=== PATIENT | female | born 1995 ===

== ENCOUNTER 2017-06-23 18:43 | Emergency (ER) | payer OTHER ==
[~2017-06-23] VITALS: Ht 160 cm; Wt 71.2 kg
--- NOTE | 2017-06-23 18:54 | ER.PDOC ---
SERAFIN CORDOBA MD 06/23/17 1854: General Chief Complaint: Requesting Medical Care Stated Complaint: SI Time seen by MD: 19:00 Source: patient History of Present Illness Intent: Suicide Severity: moderate Related to: Sigificant Other Associated Symptoms: Depressed Allergies: Coded Allergies: No Known Allergies (Unverified , 06/23/17) Review of Systems All Other Systems: Reviewed and Negative Physical Exam General Appearance: No acute distress, Alert EENT: No nystagmus, PERRLA, EOM's intact, NML ENT inspection, Pharynx nml, NML gag reflex Neck: Non-Tender, Full Range of Motion, Supple, Normal Inspection Respiratory: chest non-tender, lungs clear, normal breath sounds, no respiratory distress, no accessory muscle use Cardiovascular: Normal Peripheral Pulses, Regular Rate, Rhythm, No Edema, No Gallop, No JVD, No Murmur Gastrointestinal: Normal Bowel Sounds, No Organomegaly, No Pulsatile Mass, Non Tender, Soft Extremities: Non-Tender, Normal Range of Motion, No Evidence of Trauma, No Edema Neurological/Psychiatric: Alert, Normal Mood/Affect, Calm, certified court interpreter II-XII NML as Tested, Oriented x 3 Appearance/Memory/Insight: Appropriate Appearance, Appropriate Insight, Neat, No Memory Impairment Behavior/Eye Contact/Speech: Avoids Eye Contact Thoughts/Hallucinations: Normal Thought Pattern, No Apparent Hallucination Skin: Normal Color, Warm/Dry Progress Progress DR SINGH Departure Disposition: 65 XFER TO PSYCH HOSP/UNIT Impression: Primary Impression: Suicidal ideation Additional Impression: Depressed Qualified Codes: F32.9 - Major depressive disorder, single episode, unspecified Condition: Stable Referrals: PCP,UNKNOWN (PCP) PRIMARY CARE PROVIDER MAK SINGH MD 06/23/172054: General Chief Complaint: Requesting Medical Care Stated Complaint: SI History of Present Illness Allergies: Coded Allergies: No Known Allergies (Unverified , 06/23/17) Review of Systems Constitutional: no symptoms reported Respiratory: no symptoms reported Cardiovascular: no symptoms reported Gastrointestinal: no symptoms reported Musculoskeletal: no symptoms reported Psychiatric/Neurological: see HPI Results/Orders Results/Orders Laboratory Tests Test 06/23/17 19:00 06/23/17 19:30 White Blood Count 9.4 10^3/uL (4.5-13.0) Red Blood Count 4.96 10^6/uL (4.00-5.20) Hemoglobin 14.7 g/dL (12.4-14.8) Hematocrit 46.5 % (36.0-46.0) Mean Corpuscular Volume 93.8 fL (78-100) Mean Corpuscular Hemoglobin 29.6 pg (26-34) Mean Corpuscular Hemoglobin Concent 31.6 g/dL (33-37) Red Cell Distribution Width 13.1 % (11.5-14.5) Platelet Count 295 10^3/uL (150-400) Mean Platelet Volume 10.2 fL (7.8-11.0) Neutrophils (%) (Auto) 69.5 % (41.0-85.0) Lymphocytes (%) (Auto) 23.1 % (24.0-44.0) Monocytes (%) (Auto) 6.2 % (5.0-12.0) Neutrophils # (Auto) 6.5 10^3/uL (1.8-8.0) Lymphocytes # (Auto) 2.2 10^3/uL (1.2-5.2) Monocytes # (Auto) 0.6 10^3/uL (0.0-0.4) Absolute Immature Granulocyte (auto 0.02 10^3 u/L (0-2) Eosinophils % 0.5 % (0.0-5.0) Basophils % 0.5 % (0.0-0.2) Basophils # 0.1 10^3/uL (0.0-0.1) Eosinophil Count 0.1 10^3/uL (0.0-0.2) Sodium Level 141 mmol/L (132-145) Potassium Level 3.5 mmol/L (3.6-5.2) Chloride Level 106.0 mmol/L (96-109) Carbon Dioxide Level 22.9 mmol/L (20.0-32) Anion Gap 15.6 Blood Urea Nitrogen 7 mg/dL (7-18) Creatinine 0.69 mg/dL (0.59-1.40) Estimated GFR () 131.2 (>/=60) BUN/Creatinine Ratio 10.0 Glucose Level 107 mg/dL (70-110) Calcium Level 8.7 mg/dL (8.4-10.5) Total Bilirubin 0.7 mg/dL (0.2-1.0) Aspartate Amino Transf (AST/SGOT) 12 U/L (0-35) Alanine Aminotransferase (ALT/SGPT) 7 U/L (12-78) Alkaline Phosphatase 54 U/L (50-136) Total Creatine Kinase 31 U/L (26-192) Creatine Kinase MB 0.2 ng/mL (0.5-3.6) Troponin I < 0.02 ng/mL (0.00-0.05) Total Protein 7.7 g/dL (6.4-8.2) Albumin 4.0 g/dL (3.4-5.0) Globulin 3.7 Serum HCG, Qualitative NEGATIVE (NEGATIVE) Salicylates Level < 2.8 mg/dL (2.8-20.0) Urine Opiates (GC/MS) NEGATIVE (NEGATIVE) Acetaminophen Level < 2 ug/mL (10-30) Urine Amphetamine Qualitative NEGATIVE (NEGATIVE) Urine Barbiturates, Qualitative NEGATIVE (NEGATIVE) Urine Phencyclidine (PCP) (TLC) NEGATIVE (NEGATIVE) Urine Benzodiazepines, Qualitative NEGATIVE (NEGATIVE) Ur Tetrahydrocannabinol (THC) Scrn POSITIVE (NEGATIVE) Serum Alcohol 6 mg/dL (3-50) Percent Immature Gran (Cell Imm) 0.20 % (0.00-0.50) Urine Collection Type CCMS Urine Color YELLOW (YELLOW) Urine Appearance MUCOUS (CLEAR) Urine Bilirubin NEGATIVE MG/DL (NEGATIVE) Urine Ketones NEGATIVE (NEGATIVE) Urine Specific [place] 1.015 (1.005-1.035) Urine pH 7 (5.0-6.0) Urine Protein 100 mg/dL (NEGATIVE) Urine Urobilinogen NORMAL (NEGATIVE) Urine Nitrate NEGATIVE (NEGATIVE) Urine Leukocyte Esterase 500/uL 2+ (NEGATIVE) Urine Blood 150 3+ (NEGATIVE) Urine RBC 10-25 RBC/HPF (NONE SEEN) Urine WBC TNTC WBC/HPF (0-2) Urine Squamous Epithelial Cells RARE #/HPF (FEW) Urine Bacteria MANY (NONE SEEN) Urine Other 2+ MUCOUS #/HPF Urine Glucose NORMAL (NEGATIVE) Departure Time of Disposition: 01:52 Disposition: 65 XFER TO PSYCH HOSP/UNIT Impression: Primary Impression: Suicidal ideation Additional Impression: Depressed Qualified Codes: F32.9 - Major depressive disorder, single episode, unspecified Condition: Stable Referrals: PCP,UNKNOWN (PCP) PRIMARY CARE PROVIDER Comments Patient medically cleared to go to the [facility]. Accepted there. Duration or Time Spent with Pa: 3 hours SERAFIN CORDOBA MD Jun 23, 2017 18:54 MAK SINGH MD Jun 23, 2017 20:55
--- NOTE | 2017-06-23 18:55 | NUR ---
ARRIVAL PT ARRIVED AMBULATORY TO ER 8 WITH C/O OF SUICIDAL IDEATION. PT STATES WANTS TO VOLUNTARILY BE COMMITTED FOR SUICIDAL THOUGHTS. STATES A PLAN OF "TAKING A WHOLE BOTTLE OF BENADRYL TO KILL MYSELF." EDP IN ROOM.
--- NOTE | 2017-06-23 18:56 | NUR ---
SEPSIS PT DOES NOT MEET SEPSIS CRITERIA AT THIS TIME.
[2017-06-23 19:00] VITALS: BP 128/70
[2017-06-23 19:05] LABS: BASOPHIL # 0.1 10^3/uL (0.0-0.1); BASOPHIL % 0.5 % (0.0-0.2); EOSINOPHIL # 0.1 10^3/uL (0.0-0.2); EOSINOPHIL % 0.5 % (0.0-5.0); HEMOGLOBIN 14.7 g/dL (12.4-14.8); LYMPHOCYTES # 2.2 10^3/uL (1.2-5.2); LYMPHOCYTES % 23.1 % (24.0-44.0); MEAN CELL HGB 29.6 pg (26-34); MEAN CELL HGB CONCENTRATION 31.6 g/dL (33-37); MEAN CORP VOLUME 93.8 fL (78-100); MEAN PLATELET VOLUME 10.2 fL (7.8-11.0); MONOCYTES # 0.6 10^3/uL (0.0-0.4); MONOCYTES % 6.2 % (5.0-12.0); NEUTROPHIL # 6.5 10^3/uL (1.8-8.0); NEUTROPHILS % 69.5 % (41.0-85.0); RED CELL DISTRIBUTION WIDTH 13.1 % (11.5-14.5); WHITE BLOOD CELL 9.4 10^3/uL (4.5-13.0)
--- NOTE | 2017-06-23 19:11 | PCM.EKG ---
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
[2017-06-23 19:30] LABS: ALANINE AMINOTRANSFERASE(ML) 7 U/L (12-78); ALKALINE PHOSPHATASE 54 U/L (50-136); ASPARTATE AMINO TRANSFERASE 12 U/L (0-35); CALCIUM 8.7 mg/dL (8.4-10.5); CARBON DIOXIDE 22.9 mmol/L (20.0-32); GLUCOSE 107 mg/dL (70-110)
[2017-06-23 19:31] LABS: ACETAMINOPHEN < 2 ug/mL (10-30)
--- NOTE | 2017-06-23 19:39 | NUR ---
[facility] CONTACTED [facility] FOR EVALUATION
[2017-06-23 19:46] VITALS: BP 127/54
[2017-06-23 20:02] LABS: BILIRUBIN,URINE NEGATIVE (NEGATIVE); UROBILINOGEN,URINE NORMAL (NEGATIVE)
[2017-06-23 20:04] LABS: APPEARANCE,URINE MUCOUS (CLEAR); UA COLOR YELLOW (YELLOW)
[2017-06-23 20:06] LABS: WBC,URINE TNTC WBC/HPF (0-2)
--- NOTE | 2017-06-23 20:22 | NUR ---
JAQUI Mckeon from [facility] returned phone call. Stated that she would be at the office in 25 minutes and would call us when ready
[2017-06-23 20:42] VITALS: BP 145/67
--- NOTE | 2017-06-23 20:58 | NUR ---
UPDATE PT RESTING IN BED WITH LIGHTS DIMMED. PT STATES NO NEEDS AT THIS TIME.
--- NOTE | 2017-06-23 21:30 | NUR ---
UPDATE Patient in with Linda from [facility] for evaluation. Patient stated that she has a plan and does not feel safe with herself to follow up with the outpatient plan with [facility].
[2017-06-23 21:45] VITALS: BP 110/66
--- NOTE | 2017-06-23 22:22 | NUR ---
Pam Spoke to Linda [facility]put [facility] to follow up after [facility] evaluation.
[2017-06-23 22:30] VITALS: BP 109/53
--- NOTE | 2017-06-23 22:35 | NUR ---
UPDATE PT SITTING IN BED EATING CEREAL AT THIS TIME. NO OTHER NEEDS VOICED.
--- NOTE | 2017-06-23 23:30 | NUR ---
RITO Spoke to Linda at the [facility] for an update for placement for patient. Linda stated that the doctor had not got to her chart yet but they [facility] get [facility]. She would let us know as soon as she hears something back from the
[2017-06-23 23:50] VITALS: BP 107/72
[2017-06-24 00:56] VITALS: BP 152/88
--- NOTE | 2017-06-24 00:59 | NUR ---
PAV UPDATE LIZ FROM [facility] CALLED TO INFORM THAT PT HAS BEEN ACCEPTED FOR ADMISSION BY DR JOHNSON.
--- NOTE | 2017-06-24 01:00 | NUR ---
UPDATE PT CURRENTLY RESTING IN RIGHT LATERAL POSITION IN BED WITH EYES CLOSED.
--- NOTE | 2017-06-24 01:29 | NUR ---
JUVENILE OFFICER CALL IN TO DISPATCH FOR A JUVENILE OFFICER TO COME TO ER FOR PAPERS.
--- NOTE | 2017-06-24 02:15 | NUR ---
[facility]. CARE RELINQUISHED TO [facility] AT THIS TIME.
--- NOTE | 2017-06-24 02:17 | NUR ---
report report called to cristina
[2017-06-24 02:18] VITALS: BP 152/88
== END 2017-06-24 02:15 ==
LOC: ER 18:43
DX: R45.851 Suicidal ideations (principal); F32.9 Major depressive disorder, single episode, unspecified
CPT/HCPCS: 36415; 80053; 80307; 81000; 82550; 82553; 84484; 84703; 85025; 87086; 93005; 99285; G0481; G0482; G0483